=== PATIENT | male | born 1985 | race Caucasian/White ===

== ENCOUNTER 2018-05-17 01:38 | Emergency (ER) | payer OTHER ==
[~2018-05-17] VITALS: Ht 182.9 cm; Wt 99.8 kg
[~2018-05-17 01:38] MED LIST: ACETAMINOPHEN-1 EAC1 PO
[2018-05-17] MEDS ORDERED: NORCO 5-325 TA1 EACH PO (02:10)
[2018-05-17 02:47] VITALS: BP 118/68
== END 2018-05-17 02:18 | disposition home or self-care (01) ==
LOC: M.ERS 01:38
DX: S46.911A Strain of unspecified muscle, fascia and tendon at shoulder and upper arm level, right arm, initial encounter (principal); W18.39XA Other fall on same level, initial encounter; Y93.61 Activity, american tackle football; Y92.89 Other specified places as the place of occurrence of the external cause; Y99.8 Other external cause status